=== PATIENT | male | born 1935 | race Caucasian/White ===

== ENCOUNTER → 2017-09-14 | Outpatient (CLI) | payer OTHER | LOC: GIMAGING 10:50 | PROVIDERS: ATTEND Family Medicine | DX: S60.351A Superficial foreign body of right thumb, initial encounter (principal); M25.741 Osteophyte, right hand; M25.742 Osteophyte, left hand | CPT/HCPCS: 73130-PO ==

== ENCOUNTER → 2018-03-16 | Outpatient (CLI) | payer OTHER, MEDICARE | LOC: GIMAGING 15:19 | PROVIDERS: ATTEND Family Medicine | DX: S22.080G Wedge compression fracture of T11-T12 vertebra, subsequent encounter for fracture with delayed healing (principal) | CPT/HCPCS: 72100-PO ==

== ENCOUNTER → 2018-07-27 | Outpatient (CLI) | payer OTHER, MEDICARE | LOC: GIMAGING 10:40 | PROVIDERS: ATTEND Family Medicine | DX: S22.060A Wedge compression fracture of T7-T8 vertebra, initial encounter for closed fracture (principal); S22.010A Wedge compression fracture of first thoracic vertebra, initial encounter for closed fracture | CPT/HCPCS: 72070-PO ==